=== PATIENT | female | born 1965 | race Caucasian/White ===

== ENCOUNTER → 2016-06-07 | Outpatient (CLI) | payer OTHER ==
--- NOTE | 2016-06-07 19:56 | CONS ---
DATE OF CONSULTATION: REASON FOR CONSULTATION: Chronic fatigue in addition to multiple other complaints that are somewhat nonspecific thought to be related to sleep disorder. HISTORY OF PRESENT ILLNESS: This is a 50-year-old female patient who claims to be in a good state of health. Over the past 4 to 5 months at least there has significant change in her condition. She is complaining of multiple symptoms that are somewhat one way or the other not related to each other. She is having nonspecific chest wall pains for which she has undergone cardiac work-up with Dr. Hernandez and her echocardiogram ( ) noted to be negative. She has noted some elevation in her blood pressure. She has also noted around 30 pounds weight gain over the past 6 months. She has been complaining of increased fatigue and sleepiness. She is having some sleep disturbance as the patient is going to bed around 1:00 a.m. waking up at 5:00 a.m. and she is unable to sleep more than 3 to 5 hours and she wakes up constantly. She is feeling flushed, anxious and hot flashes. She also seems to be quite restless. She claims to have had the blood work through her primary care physician's and apparently there have been no significant abnormalities. She is having irregular menses and probably she is at a premenopausal stage at this point. She has been diagnosed having hypothyroidism in the past and at one point she was on 125 mcg of Synthroid and currently she is off the treatment and she took herself off the treatment without consulting her physician. She has been diagnosed having hypertension, hyperlipidemia recently and she was started on combination of Pravachol and Lopressor. She also has history of polycystic ovary syndrome. No history of depression. No history of anxiety. She works 2 jobs. 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 PAST MEDICAL HISTORY: Hypertension, hyperlipidemia, polycystic ovary syndrome, and hypothyroidism. Past surgical history is right foot surgery. DRUG ALLERGIES: Not known. Outpatient medication includes: 1. Pravachol. 2. Lopressor. SOCIAL HISTORY: Nonsmoker, no history of alcohol. No history of IV drugs. FAMILY HISTORY: Negative for sleep breathing disorder. REVIEW OF SYSTEMS: Twelve-point review of systems was done. Positive findings mentioned above in the history of present illness. BP is 132/94, pulse 74, respirations 16, temperature 97.9, sats are 96% on room air. Weight is 215, height is 5 feet 8 inches, neck size 14-1/2 inches. GENERAL APPEARANCE: Calm, comfortable. HEENT: Negative for JVD goiter, neck masses. Mallampati Class 1. LUNGS: Clear to auscultation. HEART: Heart sounds are regular rate and rhythm. Normal S1, S2. ABDOMEN: Soft, nontender. No organomegaly. EXTREMITIES: No edema. No cyanosis or clubbing. IMPRESSION: 1. Sleep disturbance, nonspecific. Rule out a new onset insomnia, which is secondary to various other symptoms that the patient is having. Very likely the patient is going through menopause and some of the manifestations can be attributed to that. However, other metabolic disorders and endocrinological disorders such as hypothyroidism and connective tissue disease disorders need to be ruled out especially that she is having chronic body aches in addition. She needs to be worked up further in that regard. Sleep apnea is felt to be much less likely at this point. 2. Chronic fatigue. 3. Recent weight loss. Current BMI is 32. 4. Hypertension. 5. Hyperlipidemia. 6. Hypothyroidism, history of. 7. Polycystic ovary syndrome. PLAN: 1. Review the blood work. 2. Make sure there is no hypothyroidism. 3. Make sure there is no iron deficiency. 4. Serologic markers for connective tissue disease. 5. Complete the cardiac work-up. 6. Home sleep study to assess for any sleep breathing disorder and deal accordingly.
== END | disposition home or self-care (01) ==
LOC: SLEEP 15:49
PROVIDERS: ATTEND Internal Medicine Critical Care Medicine
DX: R53.82 Chronic fatigue, unspecified (principal); G47.9 Sleep disorder, unspecified; I10 Essential (primary) hypertension; E78.5 Hyperlipidemia, unspecified; E03.9 Hypothyroidism, unspecified; E28.2 Polycystic ovarian syndrome; Z79.899 Other long term (current) drug therapy
CPT/HCPCS: 99211

== ENCOUNTER → 2017-04-25 | Outpatient (CLI) | payer OTHER ==
[2017-04-25 10:49] LABS: ALT 48 U/L (9-52); AST 34 U/L (14-36); Alkaline Phosphatase 89 U/L (38-126); Anion Gap 10 mmol/L; Blood Urea Nitrogen 15 mg/dL (7-17); Carbon Dioxide 29 mmol/L (22-30); Chloride 103 mmol/L (98-107); Cholesterol 244 mg/dL (<200); Glucose 102 mg/dL (74-99); HDL Cholesterol 58 mg/dL (40-60); Non-African American GFR(MDRD) >60 (>60 ml/min/1.73 sqM); Potassium 4.5 mmol/L (3.5-5.1); Sodium 142 mmol/L (137-145); Total Bilirubin 0.6 mg/dL (0.2-1.3); Total Protein 7.9 g/dL (6.3-8.2)
== END | disposition home or self-care (01) ==
LOC: LABWHC1 09:37
PROVIDERS: ATTEND Internal Medicine Interventional Cardiology
DX: E78.2 Mixed hyperlipidemia (principal)
CPT/HCPCS: 36415; 80053; 80061

== ENCOUNTER → 2017-05-03 | Outpatient (CLI) | payer OTHER ==
--- NOTE | 2017-05-03 09:02 | MM ---
Reason for exam: additional evaluation requested from abnormal screening. Last mammogram was performed less than 1 month ago. History: Family history of breast cancer in paternal grandmother. Took hormonal contraceptives for 5 years beginning at age 18. Physical Findings: Nurse Summary: 2cm nodule in the left breast at 1 o'clock (nurse ebony). MG 3D Work Up W/Cad LT Spot compression CC, spot compression MLO, and LM view(s) were taken of the left breast. Prior study comparison: April 25, 2017, bilateral MG screening mammo w CAD. August 26, 2008, bilateral diagnostic digital mammog. Finding: There is a 22 mm circumscribed oval mass in the upper outer quadrant of the left breast, lesion persists. These results were verbally communicated with the patient and result sheet given to the patient on 05/03/17. ASSESSMENT: Incomplete: need additional imaging evaluation, BI-RAD 0 RECOMMENDATION: Ultrasound of the left breast.
--- NOTE | 2017-05-03 09:04 | USB ---
Reason for exam: additional evaluation requested from abnormal screening. History: Family history of breast cancer in paternal grandmother. Took hormonal contraceptives for 5 years beginning at age 18. US Breast Workup Limited LT Left breast ultrasound demonstrates a 0.9 x 0.7 x 0.5cm oval, cystic lesion at 12 o'clock, a 2.3 x 1.7 x 1.2cm oval, cystic lesion at 1 o'clock and a 0.7 x 0.8 x 0.5cm oval, cystic lesion at 2 o'clock. Fibrocystic change. These results were verbally communicated with the patient and result sheet given to the patient on 05/03/17. ASSESSMENT: Benign, BI-RAD 2 RECOMMENDATION: Return to routine screening mammogram schedule for both breasts.
== END | disposition home or self-care (01) ==
LOC: RADMAMWWP 07:32
PROVIDERS: ATTEND Obstetrics & Gynecology
DX: R92.8 Other abnormal and inconclusive findings on diagnostic imaging of breast (principal)
CPT/HCPCS: 77065; 76642; G0279

== ENCOUNTER 2018-02-21 08:27 | Day surgery (SDC) | payer OTHER ==
[2018-02-19 15:35] VITALS: BMI 28.4
[~2018-02-21 08:27] MED LIST: LACTATED RINGERS 1,000 ML IV SCH; LIDOCAINE 1% 20 ML VIAL (10MG/ML) FOR IV START INTRADERMA PRN
[2018-02-21 08:50] VITALS: RESP 16; TEMP 98
[2018-02-21] MEDS ORDERED: PROPOFOL 10 MG/ML 20 ML VIAL IV ONE (09:42)
[2018-02-21] MEDS ORDERED: GLYCOPYRROLATE 0.2 MG/ML 2 ML VIAL ONE (09:42)
[2018-02-21] MEDS ORDERED: LIDOCAINE 1% INJ 10MG/ML (20 ML MDV) ONE (09:42)
[2018-02-21] MEDS ORDERED: MIDAZOLAM 2 MG/2 ML VIAL ONE (09:42)
--- NOTE | 2018-02-21 10:04 | P.PCN ---
Date of Procedure: 02/21/18 Procedure(s) Performed: Brief history: Patient is a pleasant 52-year-old white female, scheduled for an elective upper endoscopy as well as colonoscopy as a part of evaluation of epigastric pain, postprandial abdominal bloating and change in bowel habits. Procedure performed: Esophagogastroduodenoscopy with biopsy Colonoscopy Preoperative diagnosis: Chronic epigastric pain Change in bowel habits Anesthesia: MAC Procedure: After informed consent was obtained from the patient was brought into the endoscopy unit and IV sedation was administered by anesthesia under continuous monitoring. Initially upper endoscopy was done. The Olympus GF 160 video endoscope was inserted inserted into the mouth and esophagus intubated without any difficulty and was gradually advanced into the stomach and duodenum and carefully examined. The bulb and second part of the duodenum appeared normal. Biopsies were done from the duodenum to rule out celiac disease. The scope was then withdrawn into the stomach adequately insufflated with air and upon careful examination the antrum had mild diffuse gastritis and biopsies were done from this area. The body, cardia and fundus appeared normal. the multiple small gastric polyps in the body of the stomach and biopsies were also done from this area. The scope was then withdrawn into the esophagus. The GE junction was located at 40 cm to the incisors. It appeared regular with no erythema erosions or ulcerations. Rest of the esophagus appeared normal. Patient tolerated the procedure well. At this time the patient continued to remain sedation. Initial digital rectal examination was normal. Olympus CF 160 video colonoscope was then inserted into the rectum and gradually advanced to the cecum without any difficulty. Careful examination was performed as the scope was gradually being withdrawn. The prep was excellent. The cecum, ascending colon, transverse colon, descending colon, sigmoid colon and rectum appeared normal. Retroflexion was performed in the rectum and no lesions were noted. Patient tolerated the procedure well. Impression: 1. Upper endoscopy revealed mild antral gastritis, small gastric polyps 2. Colonoscopy was essentially within normal limits with no evidence of colitis or colorectal neoplasia. Recommendations: Findings of this examination were discussed with the patient as well as her family. She was advised to follow with the biopsy results. She was advised to have a repeat screening colonoscopy in 10 years.
[2018-02-21 10:31] VITALS: BP 141/87; PULSE 87
== END 2018-02-21 11:24 | disposition home or self-care (01) ==
LOC: ORWHC2ENDO 08:27
PROVIDERS: ATTEND Internal Medicine Gastroenterology
DX: K29.50 Unspecified chronic gastritis without bleeding (principal); K31.7 Polyp of stomach and duodenum; R19.4 Change in bowel habit; I10 Essential (primary) hypertension; E78.5 Hyperlipidemia, unspecified; G43.909 Migraine, unspecified, not intractable, without status migrainosus; Z79.1 Long term (current) use of non-steroidal anti-inflammatories (NSAID); Z79.899 Other long term (current) drug therapy
CPT/HCPCS: 88305; 45378; 43239; J2250; J2001; J2704

== ENCOUNTER → 2018-02-28 | Outpatient (CLI) | payer OTHER ==
[2018-02-28 08:14] VITALS: BP 133/90; PULSE 65; TEMP 98.2; BMI 29.9
--- NOTE | 2018-02-28 09:11 | P.PN ---
Progress Note - Text Progress Note Date: 02/28/18 Chief Complaint: abdominal and pelvic pains for one year. HPI: This is a 52-year-old within LMP of 10/01/2016. The patient states she has been having different types of abdominal and pelvic pains for one year. She has had abdominal tenderness and bloating during that year as well. The pain can be in the upper abdomen, lower abdomen, or pelvis. The lower abdominal pain tends to be greater on the left side in this is the side she has had more problems with ovarian cysts in the past. The discomfort often is a crampy type pain but also can be sharp in nature. At times it can be severe and she rates it at a 9 out of 10 at those times. Currently she rates it at a 4 out of 10 and it feels more like a throbbing type discomfort. Currently, there seems to be discomfort in the epigastric and lower abdomen just right of the midline. She has also noticed dyspareunia and pelvic discomfort after intercourse. She recently had a colonoscopy and upper endoscopy with minor findings that did not explain her abdominal pains, according to the patient. She had also been treated for a kidney infection in November 2017 and also was on antibiotics for bronchitis soon after that. She states she was on 3 different antibiotics over a two-month period during the summer. She has regular daily bowel movements and denies emesis. She states her appetite has been variable. Her weight has fluctuated by plus or -15 pounds. She also feels very bloated and states she often does not recognize her abdomen when she looks down because it appears so bloated. Her is status post vasectomy. Her is her only sexual partner. ROS: She has lost about 19 pounds sensor 04/25/2017 appointment. She denies respiratory or cardiac problems. G.I.: occasional nausea without emesis. Bowel movements are regular and normal. Her appetite is variable. : she denies any urinary symptoms at this time. PE: Blood pressure: 133/90, Height: 5'8", Weight: 197 pounds, Temperature: 98.2 , Pulse: 65. This is a well developed, well nourished, white female who is alert and orientedx3, in no acute distress. Neck: supple without massive thyromegaly. Chest and lungs: clear to auscultation. Heart: regular rate and rhythm. Abdomen: the abdomen does not appear distended. There are minimal bowel sounds noted. There is slight firmness in the epigastric region and this is minimally tender. The rest of the abdomen is soft with minimal lower abdominal tenderness to the right of the midline. There is no rebound tenderness. Besides the firmness in the epigastric region, there are no palpable masses. Pelvic exam: normal external genitalia. Cervix and vagina appear normal. There is no unusual vaginal discharge. There is no cervical motion tenderness. The uteruses midposition, gravid size, and nontender. There are no palpable adnexal masses or tenderness. Impression: 1. 52 year old postmenopausal female with one year history of variable abdominal and pelvic pains. 2. Epigastric firmness and mild epigastric tenderness as well as mild lower abdominal tenderness to the right of the midline. 3. Differential diagnosis will include ovarian neoplasm, non-gynecologic abdominal mass, and G.I. dysfunction. Plan: 1. Pelvic ultrasound will be done today. 2. Consider CT scan of the abdomen and pelvis after pelvic ultrasound is completed. Time spent with the patient: 30 minutes
--- NOTE | 2018-02-28 14:19 | US ---
EXAMINATION TYPE: US pelvic complete DATE OF EXAM: 02/28/2018 COMPARISON: NONE CLINICAL HISTORY: R14.0 ABD BLOATING and pelvic bloating x 1 year TECHNIQUE: Transvaginal (TV) and Transabdominal (TA) . Transabdominal sonographic images of the pel vis were acquired. Transvaginal sonographic images were medically necessary to better assess the fol lowing anatomy: endometrium and ovaries Date of LMP: 2017 EXAM MEASUREMENTS: Uterus: 10.0 x 5.7 x 4.0 cm Endometrial Stripe: 2.7mm Right Ovary: 2.4 x 1.7 x 1.8 cm Left Ovary: 3.1 x 1.6 x 1.6 cm 1. Uterus: Anteverted; multiple Nabothian Cysts in cervix with largest = 0.8 x 0.7 x 0.6cm 2. Endometrium: thickness is wnl for 1 year post menopause 3. Right Ovary: small follicles 4. Left Ovary: simple follicular cyst = 1.4 x 1.2 x 1.0cm Color flow is seen in bilateral ovary 5. Bilateral Adnexa: wnl 6. Posterior cul-de-sac: wnl IMPRESSION: 1. Multiple cervical nabothian cysts. 2. Multiple small follicles noted bilaterally. No evidence for torsion.
--- NOTE | 2018-02-28 14:39 | P.PN ---
Progress Note - Text Progress Note Date: 02/28/18 OUTPATIENT FOLLOW-UP NOTE TEST(S)/RESULTS: pelvic ultrasound done on 02/28/2018 shows small follicular cysts and small nabothian cysts. METHOD OF NOTIFICATION: the patient was notified by phone. PATIENT COMMENTS: the patient would like to proceed to CT scan of the abdomen and pelvis. DIAGNOSIS: benign pelvic ultrasound with no discrete explanation for her abdominal and pelvic symptoms. DISCUSSION: the patient will be scheduled for a CT scan of the abdomen and pelvis with contrast. She would prefer to have this done on a Monday if possible. PLAN: CT scan of the abdomen and pelvis.
== END | disposition home or self-care (01) ==
LOC: WWCWWP 07:54
PROVIDERS: ATTEND Obstetrics & Gynecology
DX: R10.816 Epigastric abdominal tenderness (principal); R10.813 Right lower quadrant abdominal tenderness; Z78.0 Asymptomatic menopausal state
CPT/HCPCS: 76830; 76856

== ENCOUNTER → 2018-03-09 | Outpatient (CLI) | payer OTHER ==
--- NOTE | 2018-03-09 16:24 | CT ---
EXAMINATION TYPE: CT abdomen pelvis w con DATE OF EXAM: 03/09/2018 COMPARISON: HISTORY: abdominal pain, bloating, distention X [address] DLP: 1098.7 mGycm CONTRAST: CT scan of the abdomen and pelvis is performed with Oral Contrast and with IV Contrast, patient injec grace with 100 mL of Isovue 300. FINDINGS: LUNG BASES-: No visible nodule. No infiltrate. LIVER/GB: Small gallstones identified. No space occupying hepatic lesion. Biliary tree is of jayden l caliber. PANCREAS: No inflammation. No distinct mass. SPLEEN: No splenic enlargement. No lesion seen. ADRENALS: No nodule. No thickening. KIDNEYS/BLADDER: No hydronephrosis. No nephrolithiasis. No distinct renal mass. Mild urinary bladd er distention. BOWEL: Normal appendix. Normal bowel caliber. No inflammation. GENITAL ORGANS: No gross abnormality. LYMPH NODES: No greater than 1cm abdominal or pelvic lymph nodes are appreciated. AORTA: No significant abnormality. OSSEOUS STRUCTURES: No significant abnormality is seen. OTHER: No significant additional abnormality is seen. IMPRESSION: 1. Small gallstones seen without evidence for wall thickening. 2. Mild urinary bladder distention. Otherwise unremarkable study.
--- NOTE | 2018-03-13 16:52 | P.PN ---
Progress Note - Text Progress Note Date: 03/13/18 OUTPATIENT FOLLOW-UP NOTE TEST(S)/RESULTS: CT scan of the abdomen and pelvis done on 03/07/2018 showed some small gallstones with no evidence of wall thickening. Also mildly distended urinary bladder. The study was otherwise unremarkable. METHOD OF NOTIFICATION: the patient was notified by phone. PATIENT COMMENTS: the patient understands the results. DIAGNOSIS: intermittent chronic abdominal pain without significant findings on CT scan or pelvic ultrasound. DISCUSSION: the findings of small gallstones and distended bladder did not seem to explain symptoms. I believe most likely persons and still can be GI related even though she had a negative colonoscopy and upper endoscopy. PLAN: she will follow up with her primary care physician if she continues to have abdominal issues. She will return to see me in one year for her annual exam.
== END | disposition home or self-care (01) ==
LOC: RADCTMAIN 14:06
PROVIDERS: ATTEND Obstetrics & Gynecology
DX: K80.20 Calculus of gallbladder without cholecystitis without obstruction (principal); N32.89 Other specified disorders of bladder; R14.0 Abdominal distension (gaseous)
CPT/HCPCS: 74177; Q9967

== ENCOUNTER → 2022-12-06 | Outpatient (CLI) | payer OTHER ==
[2022-12-06 20:28] LABS: ALT 16 U/L (8-44); AST 21 U/L (13-35); Albumin 4.6 d/dL (3.8-4.9); Alkaline Phosphatase 76 U/L (41-126); BUN/Creat Ratio 13.71 Ratio (12.00-20.00); Blood Urea Nitrogen 9.6 mg/dL (9.0-27.0); Calcium 9.5 mg/dL (8.7-10.3); Carbon Dioxide 27.6 mmol/L (21.6-31.8); Chloride 97 mmol/L (96-109); Globulin 2.3 d/dL (1.6-3.3); Glucose 95 mg/dL (70-110); Potassium 4.1 mmol/L (3.5-5.5); Sodium 138 mmol/L (135-145); Total Bilirubin 0.6 mg/dL (0.3-1.2); Total Protein 6.9 d/dL (6.2-8.2)
== END | disposition home or self-care (01) ==
LOC: LABWHC1 15:08
PROVIDERS: ATTEND Internal Medicine Interventional Cardiology
DX: I10 Essential (primary) hypertension (principal); E78.2 Mixed hyperlipidemia
CPT/HCPCS: 36415; 80053; 80061

== ENCOUNTER 2023-02-23 10:08 | Observation (INO) | payer OTHER ==
[2023-02-23] MEDS ORDERED: ONDANSETRON 4 MG/2 ML VIAL IVP STA (10:44)
[2023-02-23] MEDS ORDERED: SODIUM CHLORIDE 0.9% 1,000 ML IV ONE (10:44)
--- NOTE | 2023-02-23 10:45 | ED ---
General Adult HPI - General Chief complaint: Head Injury Stated complaint: Fall Time Seen by Provider: 02/23/23 10:15 Source: patient Mode of arrival: ambulatory Limitations: no limitations - History of Present Illness Initial comments: The patient's a 57 female is otherwise healthy presents emergency room accompanied by her for dizziness nausea and vomiting. The patient states that she became dizzy last night around 10 PM and twisted her right knee. This caused her to fall into a wall hitting the left parietal scalp onto the wall. She denies any loss consciousness but had dizziness and disorientation afterwards. She continued to feel dizzy with nausea and occasional vomiting since then. Patient states she feels as though the room is spinning. She has pain to the right knee, right hip, right humerus and right ribs. She denies a cough, congestion, fever, chest pain, shortness breath, paralysis of the extremities, slurred speech, facial droop or other neurological symptoms. - Related Data Home Medications Medication Instructions Recorded Confirmed Atorvastatin Calcium [Lipitor] 20 mg PO DAILY@189902/19/18 02/23/23 Losartan-Hctz 50-12.5 mg [Hyzaar 1 tab PO DAILY@1900 02/23/23 02/23/23 50-12.5] Allergies Allergy/AdvReac Type Severity Reaction Status Date / Time No Known Allergies Allergy Verified 02/23/23 15:48 Review of Systems ROS Statement: Those systems with pertinent positive or pertinent negative responses have been documented in the HPI. ROS Other: All systems not noted in ROS Statement are negative. Past Medical History Past Medical History: Hypertension Additional Past Medical History / Comment(s): high cholesterol,polycystic ovaries History of Any Multi-Drug Resistant Organisms: None Reported Past Surgical History: Orthopedic Surgery Additional Past Surgical History / Comment(s): R foot Smoking Status: Never smoker Past Alcohol Use History: Occasional General Exam Limitations: no limitations General appearance: alert Head exam: Present: other (Superficial abrasion over the left parietal scalp without any significant swelling. No hemotympanum bilaterally. Pupils are e qual and reactive bilaterally. Negative for any Sultana sign or raccoon eyes.) Eye exam: Present: normal appearance, nystagmus (Bilateral horizontal nystagmus), other ENT exam: Present: normal exam, other (Bilateral eustachian tube dysfunction without any erythema or perforation) Neck exam: Present: normal inspection, full ROM, other (No nuchal rigidity) Respiratory exam: Present: normal lung sounds bilaterally Cardiovascular Exam: Present: regular rate, normal rhythm GI/Abdominal exam: Present: soft Extremities exam: Present: tenderness (Pain with palpation over the right hip no deformity ecchymosis, no deformity of the right leg.), other (Pain over the lateral right knee without any significant swelling discoloration or deformity. Limited range of motion due to pain. Patient has [place] palpation over the mid right humerus. There is no deformity ecchymosis or swelling in this area.) Back exam: Present: full ROM Neurological exam: Present: alert, oriented X3, CN II-XII intact, other (No focal deficits NIH of 0, no negative pronator drift, negative [id number], no facial droop no slurred speech) Psychiatric exam: Present: normal affect, normal mood Skin exam: Present: warm, dry Course Vital Signs 02/23/23 02/23/23 02/23/23 10:11 12:03 13:20 Temperature 97 F L 98.1 F Pulse Rate 99 85 Pulse Rate [ 81 Sitting] Pulse Rate [ 81 Standing] Pulse Rate [ 79 Supine] Respiratory 18 16 Rate Blood Pressure 124/79 151/88 Blood Pressure 151/88 [Sitting] Blood Pressure 150/87 [Standing] Blood Pressure 149/89 [Supine] O2 Sat by Pulse 100 100 Oximetry - Reevaluation(s) Reevaluation #1: 02/23/23 8070 Patient is neurologically intact. Initially gave Valium which did not help with the dizziness did improve the nausea. She was also given Zofran. I attempted meclizine however patient had no improvement either. She is still significantly dizzy and feels as though the room is spinning. She will be admitted for further neurological evaluation at this time. EKG Findings - EKG Comments: EKG Findings:: EKG shows sinus rhythm at a rate of 83 bpm right bundle branch block, no acute ST segment elevation Medical Decision Making - Medical Decision Making Was pt. sent in by a medical professional or institution (, PA, FOREIGN BANKNOTE TELLER, urgent care, hospital, or alf...) When possible be specific @ -[No] Did you speak to anyone other than the patient for history (EMS, parent, family, police, friend...)? What history was obtained from this source @ -Has been at bedside Did you review nursing and triage notes (agree or disagree)? Why? @ -[I reviewed and agree with nursing and triage notes] Were old charts reviewed (outside hosp., previous admission, EMS record, old EKG, old radiological studies, urgent care reports/EKG's, alf records)? Report findings @ -[No old charts were reviewed] Differential Diagnosis (chest pain, altered mental status, abdominal pain women, abdominal pain men, vaginal bleeding, weakness, fever, dyspnea, syncope, hea dache, dizziness, GI bleed, back pain, seizure, CVA, palpatations, mental health, musculoskeletal)? @ -Concussion, TBI, vertigo, dizziness, contusion of the right humerus, contusi on of the right hip, right right rib contusion, right knee sprain EKG interpreted by me (3pts min.). @ -EKG shows sinus rhythm at a rate of 83 bpm, right bundle-branch block, no acute ST segment elevation X-rays interpreted by me (1pt min.). @ -X-rays are negative for any fractures or acute changes. No deformities seen. CT interpreted by me (1pt min.). @ -CT is negative for any mass hemorrhage or other acute changes. U/S interpreted by me (1pt. min.). @ -[None done] What testing was considered but not performed or refused? (CT, X-rays, U/S, labs)? Why? @ -[None] What meds were considered but not given or refused? Why? @ -[None] Did you discuss the management of the patient with other professionals (professionals i.e. , PA, FOREIGN BANKNOTE TELLER, lab, RT, psych nurse, home health care social worker, collar packer, teacher, evp chief exploration officer, insurance case manager)? Give summary @ -I discussed patient's symptoms are And disposition with attending ED physician Dr. Allison today. Was smoking cessation discussed for >3mins.? @ -[No] Was critical care preformed (if so, how long)? @ -[No] Were there social determinants of health that impacted care today? How? (Homelessness, low income, unemployed, alcoholism, drug addiction, transportation, low edu. Level, literacy, decrease access to med. care, custodial, rehab)? @ -[No] Was there de-escalation of care discussed even if they declined (Discuss DNR or withdrawal of care, Hospice)? DNR status @ -[No] What co-morbidities impacted this encounter? (DM, HTN, Smoking, COPD, CAD, Cancer, CVA, ARF, Chemo, Hep., AIDS, mental health diagnosis, sleep apnea, morbid obesity)? @ -[None] Was patient admitted / discharged? Hospital course, mention meds given and route, prescriptions, significant lab abnormalities, going to OR and other pertinent info. @ -Patient continues to have severe dizziness and vertigo after meclizine and Valium. She will be admitted to the hospital for further management and neuro evaluation. Undiagnosed new problem with uncertain prognosis? @ -[No] Drug Therapy requiring intensive monitoring for toxicity (Heparin, Nitro, Insulin, Cardizem)? @ -[No] Were any procedures done? @ -[No] Diagnosis/symptom? @ -Dizziness, vertigo, headache injury without loss consciousness, suspected concussion, right hip contusion, right rib contusion, right humerus contusion, sprain of the right knee Acute, or Chronic, or Acute on Chronic? @ -Acute Uncomplicated (without systemic symptoms) or Complicated (systemic symptoms)? @ -[default] Side effects of treatment? @ -[No] Exacerbation, Progression, or Severe Exacerbation? @ -[No] Poses a threat to life or bodily function? How? (Chest pain, [place], [place], pneumonia, PE, COPD, DKA, ARF, appy, cholecystitis, CVA, Diverticulitis, Homicidal, Suicidal, threat to staff... and all critical care pts) @ -[No] - Lab Data Result diagrams: 02/23/23 10:49 02/23/23 10:49 Lab Results 02/23/23 02/23/23 02/23/23 Range/Units 10:49 10:49 10:49 WBC 11.1 H (3.8-10.6) k/uL RBC 4.25 (3.80-5.40) m/uL Hgb 12.6 (11.4-16.0) gm/dL Hct 37.5 (34.0-46.0) % MCV 88.1 (80.0-100.0) fL MCH 29.6 (25.0-35.0) pg MCHC 33.6 (31.0-37.0) g/dL RDW 14.6 (11.5-15.5) % Plt Count 279 (150-450) k/uL MPV 8.9 Neutrophils % 86 % Lymphocytes % 9 % Monocytes % 4 % Eosinophils % 0 % Basophils % 0 % Neutrophils # 9.6 H (1.3-7.7) k/uL Lymphocytes # 1.0 (1.0-4.8) k/uL Monocytes # 0.4 (0-1.0) k/uL Eosinophils # 0.0 (0-0.7) k/uL Basophils # 0.0 (0-0.2) k/uL Sodium 140 (137-145) mmol/L Potassium 3.4 L (3.5-5.1) mmol/L Chloride 105 (98-107) mmol/L Carbon Dioxide 22 (22-30) mmol/L Anion Gap 13 mmol/L BUN 10 (7-17) mg/dL Creatinine 0.44 L (0.52-1.04) mg/dL Est GFR (CKD-EPI)AfAm >90 (>60 ml/min/1.73 sqM) Est GFR (CKD-EPI)NonAf >90 (>60 ml/min/1.73 sqM) Glucose 132 H (74-99) mg/dL Calcium 9.6 (8.4-10.2) mg/dL Total Bilirubin 0.8 (0.2-1.3) mg/dL AST 28 (14-36) U/L ALT 21 (4-34) U/L Alkaline Phosphatase 84 (38-126) U/L Troponin I (0.000-0.034) ng/mL Total Protein 7.5 (6.3-8.2) g/dL Albumin 4.3 (3.5-5.0) g/dL Urine Color Yellow Urine Appearance Clear (Clear) Urine pH 8.0 (5.0-8.0) Ur Specific [place] 1.015 (1.001-1.035) Urine Protein Trace (Negative) Urine Glucose (UA) Negative (Negative) Urine Ketones Trace (Negative) Urine Blood Negative (Negative) Urine Nitrite Negative (Negative) Urine Bilirubin Negative (Negative) Urine Urobilinogen <2.0 (<2.0) mg/dL Ur Leukocyte Esterase Negative (Negative) 02/23/23 Range/Units 10:49 WBC (3.8-10.6) k/uL RBC (3.80-5.40) m/uL Hgb (11.4-16.0) gm/dL Hct (34.0-46.0) % MCV (80.0-100.0) fL MCH (25.0-35.0) pg MCHC (31.0-37.0) g/dL RDW (11.5-15.5) % Plt Count (150-450) k/uL MPV Neutrophils % % Lymphocytes % % Monocytes % % Eosinophils % % Basophils % % Neutrophils # (1.3-7.7) k/uL Lymphocytes # (1.0-4.8) k/uL Monocytes # (0-1.0) k/uL Eosinophils # (0-0.7) k/uL Basophils # (0-0.2) k/uL Sodium (137-145) mmol/L Potassium (3.5-5.1) mmol/L Chloride (98-107) mmol/L Carbon Dioxide (22-30) mmol/L Anion Gap mmol/L BUN (7-17) mg/dL Creatinine (0.52-1.04) mg/dL Est GFR (CKD-EPI)AfAm (>60 ml/min/1.73 sqM) Est GFR (CKD-EPI)NonAf (>60 ml/min/1.73 sqM) Glucose (74-99) mg/dL Calcium (8.4-10.2) mg/dL Total Bilirubin (0.2-1.3) mg/dL AST (14-36) U/L ALT (4-34) U/L Alkaline Phosphatase (38-126) U/L Troponin I <0.012 (0.000-0.034) ng/mL Total Protein (6.3-8.2) g/dL Albumin (3.5-5.0) g/dL Urine Color Urine Appearance (Clear) Urine pH (5.0-8.0) Ur Specific [place] (1.001-1.035) Urine Protein (Negative) Urine Glucose (UA) (Negative) Urine Ketones (Negative) Urine Blood (Negative) Urine Nitrite (Negative) Urine Bilirubin (Negative) Urine Urobilinogen (<2.0) mg/dL Ur Leukocyte Esterase (Negative) Disposition Clinical Impression: Closed head injury, Vertigo, Sprain of right knee Disposition: ADMITTED IP TO THIS HOSP Condition: Fair Referrals: Scarlet Middleton MD [Primary Care Provider] - 1-2 days Decision to Admit Reason: Admit from EC Decision Time: 16:02
--- NOTE | 2023-02-23 11:25 | CT ---
EXAMINATION TYPE: CT brain cspine wo con CT DLP: 1403.7 mGycm, Automated exposure control for dose reduction was used. DATE OF EXAM: 02/23/2023 11:18 AM COMPARISON: None.. CLINICAL INDICATION:Female, 57 years old with history of pain; Fall, pain TECHNIQUE: Brain: Multiple axial CT images of the brain were obtained without IV contrast. Cspine: Axial CT images from the skull base to the inferior aspect of T2 we obtained without intraven ous contrast. Coronal and sagittal reformatted images were also reviewed. FINDINGS: Brain: Extra-axial spaces: No abnormal extra-axial fluid collections. Ventricular system: Within normal limits Cerebral parenchyma: No acute intraparenchymal hemorrhage or mass effect. The fletcher-white junction is well differentiated. Cerebellum: Unremarkable. Mass effect: No evidence of midline shift. Intracranial vasculature: unremarkable Soft tissues: Normal. Calvarium/osseous structures: No depressed skull fracture. Paranasal sinuses and mastoid air cells: Clear. Visualized orbits: Orbital contents are intact. Cervical spine: Fracture: None. Osseous structures: Multilevel disc space narrowing with anterior osteophytosis. Multilevel facet art hropathy. Vertebral alignment: Within normal limits. Spinal canal/Neural Foramina: No evidence of significant spinal canal narrowing. Facet joint uncovert ebral joint arthropathy scattered throughout the cervical spine with varying degrees of neural forami nal stenosis. Neck soft tissues: Prevertebral soft tissues are within normal limits. Other: The airway is patent. The lung apices are clear. IMPRESSION: 1. No acute intracranial process. 2. No evidence of cervical spine fracture. 3. Mild multilevel degenerative disc disease and facet arthropathy.
[2023-02-23 11:41] LABS: ALT 21 U/L (4-34); AST 28 U/L (14-36); African American GFR (CKD) >90 (>60 ml/min/1.73 sqM); Albumin 4.3 g/dL (3.5-5.0); Alkaline Phosphatase 84 U/L (38-126); Anion Gap 13 mmol/L; Blood Urea Nitrogen 10 mg/dL (7-17); Calcium 9.6 mg/dL (8.4-10.2); Carbon Dioxide 22 mmol/L (22-30); Chloride 105 mmol/L (98-107); Glucose 132 mg/dL (74-99); Non-African American GFR(CKD) >90 (>60 ml/min/1.73 sqM); Potassium 3.4 mmol/L (3.5-5.1); Sodium 140 mmol/L (137-145); Total Bilirubin 0.8 mg/dL (0.2-1.3); Total Protein 7.5 g/dL (6.3-8.2)
[2023-02-23 11:43] LABS: Basophils % (A) 0 %; Eosinophils % (A) 0 %; HCT 37.5 % (34.0-46.0); HGB 12.6 gm/dL (11.4-16.0); Lymphocytes % (A) 9 %; MCH 29.6 pg (25.0-35.0); MCHC 33.6 g/dL (31.0-37.0); MCV 88.1 fL (80.0-100.0); Mean Platelet Volume 8.9; Monocytes # (A) 0.4 k/uL (0-1.0); Monocytes % (A) 4 %; Neutrophils # (A) 9.6 k/uL (1.3-7.7); Neutrophils % (A) 86 %; Platelet Count 279 k/uL (150-450); RBC 4.25 m/uL (3.80-5.40); RDW 14.6 % (11.5-15.5); WBC 11.1 k/uL (3.8-10.6)
--- NOTE | 2023-02-23 12:04 | XR ---
EXAMINATION TYPE: XR Hip Complete RT DATE OF EXAM: 02/23/2023 11:57 AM CLINICAL INDICATION:Female, 57 years old with history of pain, fall; [facility] COMPARISON: None. TECHNIQUE: XR Hip Complete RT; hip was examined in the frontal and lateral projections and a AP pelvi s. FINDINGS: No evidence for acute process, joint dislocation or significant soft tissue swelling. Osteo phyte formation of the superior acetabulum of the hip. IMPRESSION: 1. No evidence for acute process. 2. Mild hip osteoarthrosis.
--- NOTE | 2023-02-23 12:05 | XR ---
EXAMINATION TYPE: XR humerus RT DATE OF EXAM: 02/23/2023 11:57 AM CLINICAL INDICATION:Female, 57 years old with history of pain, fall; COMPARISON: None TECHNIQUE: The right humerus was examined in frontal and lateral projections. FINDINGS: No evidence of acute osseous pathology, joint dislocation, or soft tissue swelling. The rem aining portions of the visualized chest are unremarkable. Mild degeneration changes of the acromiocla vicular joint. IMPRESSION: 1. No acute osseous pathology. 2. Mild right AC joint osteoarthrosis.
--- NOTE | 2023-02-23 12:06 | XR ---
EXAMINATION TYPE: XR ribs RT w pa chest xray DATE OF EXAM: 02/23/2023 11:57 AM CLINICAL INDICATION:Female, 57 years old with history of fall, pain; [facility] COMPARISON: None TECHNIQUE: XR ribs RT w pa chest xray; Frontal and oblique views of the ribs with frontal chest radio graph. FINDINGS: The ribs have a normal appearance. No evidence of fracture. Overall, the lungs are clear. The cardiac silhouette is normal in size. The remaining osseous structures are intact. IMPRESSION: No acute osseous pathology.
--- NOTE | 2023-02-23 12:06 | XR ---
EXAMINATION TYPE: XR knee complete RT DATE OF EXAM: 02/23/2023 11:57 AM CLINICAL INDICATION:Female, 57 years old with history of pain, fall; [facility] COMPARISON: None. TECHNIQUE: XR knee complete RT; examined in Frontal, lateral and oblique projections. FINDINGS: No evidence of any acute osseous pathology, soft tissue swelling. There may be a small reyna int effusion present. Tricompartmental osteophyte formation involving the femoral condyles, tibial plateau and patella. Mi ld joint space narrowing. Bipartite patella noted. IMPRESSION: 1. No acute osseous pathology. 2. Moderate tricompartmental osteoarthritic changes.
[2023-02-23] MEDS ORDERED: MECLIZINE 12.5 MG TAB PO STA (13:27)
[2023-02-23 15:03] LABS: Appearance,Urine Clear (Clear); Bilirubin,Urine Negative (Negative); Blood,Urine Negative (Negative); Color,Urine Yellow; Glucose,Urine (UA) Negative (Negative); Ketones,Urine Trace (Negative); Protein,Urine Trace (Negative); Specific Gravity,Urine 1.015 (1.001-1.035); Urobilinogen,Urine <2.0 mg/dL (<2.0)
[2023-02-23 15:04] LABS: Leukocyte Esterase,Urine Negative (Negative); Nitrite,Urine Negative (Negative)
[2023-02-23] MEDS ORDERED: ONDANSETRON 4 MG/2 ML VIAL IVP PRN (17:03)
[2023-02-23] MEDS ORDERED: NALOXONE 0.4 MG/ML 1 ML VIAL IV PRN (17:03)
[2023-02-23] MEDS ORDERED: LORazepam 2 MG/ML INJ IV PRN (17:04)
[2023-02-23] MEDS ORDERED: MECLIZINE 25 MG TAB PO PRN (17:04)
[2023-02-23] MEDS: SODIUM CHLORIDE 0.9% 1,000 ML IV SCH (17:28)
[2023-02-23] MEDS: ATORVASTATIN 20 MG TAB PO SCH (20:36)
[2023-02-23] MEDS: POTASSIUM CHLORIDE 10 MEQ in WATER FOR INJECTION 1 100ML.BAG IVPB SCH ×2 (20:37→22:57)
[2023-02-23] MEDS: LOSARTAN-HCTZ 50-12.5 MG 1 EACH TAB PO SCH (21:24)
[2023-02-24] MEDS ORDERED: ACETAMINOPHEN TAB 325 MG TAB PO PRN ×2 (08:31→12:25)
[2023-02-24] MEDS: FAMOTIDINE 20 MG/2 ML VIAL IV SCH ×2 (08:42→20:43)
[2023-02-24] MEDS: HEPARIN SODIUM,PORCINE 5,000 UNIT/ML 1 ML VIAL SQ SCH ×2 (08:42→20:44)
[2023-02-24 11:37] LABS: BUN/Creat Ratio 10.67 Ratio (12.00-20.00); Blood Urea Nitrogen 6.4 mg/dL (9.0-27.0); Calcium 8.5 mg/dL (8.7-10.3); Carbon Dioxide 34.5 mmol/L (21.6-31.8); Chloride 109 mmol/L (96-109); Glucose 97 mg/dL (70-110); Potassium 3.8 mmol/L (3.5-5.5); Sodium 145 mmol/L (135-145)
--- NOTE | 2023-02-24 12:07 | P.HPIM ---
History of Present Illness This is a pleasant 57 years old female with past medical history of hypertension patient states that her symptoms started Monday evening when she was trying to stand up quickly and she felt dizzy at the same time her foot gets stuck in the furniture and her right knee got twisted and an start seeing burst applied to the front of her eyesassociated with vomiting until 4:00 in the morning. Patient states that she cannot do weightbearing on her right knee because it hurts. Patient presents because she fell last night pt states she still feels dizziness which she describes it as nonspecific dizziness other than the room spinning or presyncope. relatedher dizziness got worse with or extreme head movement. She has some headache about 6-7/10 in the morning that's partially improved with Tylenol, She denies weakness numbness or tingling. No slurred speech. She still feels nausea, she tolerated this morning. She denies any diarrhea. No urinary complaints. No chest pain or dyspnea. no smoking, no illicit drugs. She drinks alcohol occasionally patient wants to go home soon for example after MRI which is pending now Vital signs stable and patient is afebrile Labs showed mild leukocytosis of 11.1, rest of CBC, BMP, liver enzymes not elevated. Urine analysis is negative for infection CT of the head and neck: No acute process X-ray of the right hip, right humerus, right knee: No acute process. Neck: No acute process EKG showing normal sinus rhythm at [address]-T changes Review of Systems Review of systems CONSTITUTIONAL: No fever, no malaise, no fatigue. HEENT: No recent visual problems or hearing problems. Denied any sore throat. CARDIOVASCULAR: No orthopnea, PND, no palpitations, no syncope. PULMONARY: No shortness of breath, no cough, no hemoptysis. GASTROINTESTINAL: No diarrhea, no nausea, no vomiting, no abdominal pain. Normoactive bowel sounds. NEUROLOGICAL: No headaches, no weakness, no numbness. HEMATOLOGICAL: Denies any bleeding or petechiae. GENITOURINARY: Denies any burning micturition, frequency, or urgency. MUSCULOSKELETAL/RHEUMATOLOGICAL: Denies any joint pain, swelling, or any muscle pain. ENDOCRINE: Denies any polyuria or polydipsia. Past Medical History Past Medical History: Hypertension Additional Past Medical History / Comment(s): high cholesterol,polycystic ovaries History of Any Multi-Drug Resistant Organisms: None Reported Past Surgical History: Orthopedic Surgery Additional Past Surgical History / Comment(s): R foot Past Anesthesia/Blood Transfusion Reactions: No Reported Reaction Past Psychological History: No Psychological Hx Reported Smoking Status: Never smoker Past Alcohol Use History: Occasional - Past Family History Father Family Medical History: COPD Additional Family Medical History / Comment(s): high platelet disorder- told hereditary Medications and Allergies Home Medications Medication Instructions Recorded Confirmed Type Atorvastatin Calcium [Lipitor] 20 mg PO DAILY@189902/19/18 02/23/23 History Losartan-Hctz 50-12.5 mg [Hyzaar 1 tab PO DAILY@189902/23/23 02/23/23 History 50-12.5] Allergies Allergy/AdvReac Type Severity Reaction Status Date / Time No Known Allergies Allergy Verified 02/23/23 15:48 Physical Exam Vitals: Vital Signs Temp Pulse Pulse Pulse Pulse Resp BP 02/24/23 06:54 97.8 F 77 18 02/24/23 01:35 98 F 97 02/23/23 22:51 98.1 F 73 17 02/23/23 21:57 76 16 132/80 02/23/23 18:38 98.5 F 92 16 129/81 02/23/23 16:49 98.1 F 80 16 132/73 02/23/23 13:20 98.1 F 85 16 151/88 02/23/23 12:03 81 81 79 02/23/23 10:11 97 F L 99 18 124/79 BP BP BP Pulse Ox 02/24/23 06:54 129/83 98 02/24/23 01:35 106/62 97 02/23/23 22:51 114/74 97 02/23/23 21:57 99 02/23/23 18:38 98 02/23/23 16:49 99 02/23/23 13:20 100 02/23/23 12:03 151/88 150/87 149/89 02/23/23 10:11 100 Intake and Output 02/23/23 02/24/23 02/24/23 22:59 06:59 14:59 Intake Total 700 Balance 700 Intake: Intake, IV Titration 700 Amount Potassium Chloride 10 meq 100 In Water For Injection 1 100ml.bag @ 100 mls/hr IVPB Q1H [facility] Rx#: [id number] Sodium Chloride 0.9% 1, 600 000 ml @ 75 mls/hr IV . [id number] [facility] Rx#:[id number] Other: # Voids 1 Weight 74.843 kg GENERAL: The patient is alert and oriented x3, not in any acute distress. Well developed, well nourished. HEENT: Pupils are round and equally reacting to light. EOMI. No scleral icterus. No conjunctival pallor. Normocephalic, atraumatic. No pharyngeal erythema. No thyromegaly. CARDIOVASCULAR: S1 and S2 present. No murmurs, rubs, or gallops. PULMONARY: Chest is clear to auscultation, no wheezing , no crackles. ABDOMEN: Soft, nontender, nondistended, normoactive bowel sounds. No palpable organomegaly. -MUSCULOSKELETAL: No joint swelling or deformity. right knee mildly swollen and tender EXTREMITIES: No cyanosis, clubbing, or pedal edema. NEUROLOGICAL: Gross neurological examination did not reveal any focal deficits. SKIN: No rashes. no petechiae. Results CBC & Chem 7: 02/23/23 10:49 02/24/23 06:35 Labs: Abnormal Lab Results - Last 24 Hours (Table) 02/23/23 02/23/23 Range/Units 10:49 10:49 WBC 11.1 H (3.8-10.6) k/uL Neutrophils # 9.6 H (1.3-7.7) k/uL Potassium 3.4 L (3.5-5.1) mmol/L Creatinine 0.44 L (0.52-1.04) mg/dL Glucose 132 H (74-99) mg/dL Thrombosis Risk Factor Assmnt - Choose All That Apply Any of the Below Risk Factors Present?: Yes Each Factor Represents 1 point: Age 41-60 years Other Risk Factors: No Other congenital or acquired thrombophilia - If yes, enter type in comment: No Thrombosis Risk Factor Assessment Total Risk Factor Score: 1 Thrombosis Risk Factor Assessment Level: Low Risk Assessment and Plan Assessment: severe dizziness as admission , associated with nausea and vomiting Fall without syncope right knee sprain and swelling hypertension Plan: patient on meclizine when necessary Continue with the neuro check Continue with IV hydration mri of brain Neurology consult orthopedic team consult pain management, patient agrees to start [place] 5 mg with risks benefits are explained to her in details including but not limiting to risk of respiratory depression, and/or or addiction Labs and medication were reviewed.. Continue same treatment. Continue with symptomatic treatment. Resume home medication. Monitor labs and vitals. DVT and GI prophylaxis. Further recommendations as per clinical course of the patient DVT prophylaxis: Subcutaneous heparin GI Prophylaxis: Pepcid PT/OT: Pending Prognosis is guarded
--- NOTE | 2023-02-24 12:08 | P.CNNES ---
History of Present Illness Consult date: 02/24/23 Requesting physician: Cuca Barahona Reason for Consult: dizziness, unresolved vertigo History of Present Illness: This is a 57-year-old woman with history of hypertension, positive orthostatic hypotension who presented emergency department because of a fall and dizziness. According to the patient that about 2 days ago she was organizing stuff in her house late at night and the she felt lightheaded upon standing up and her foot got stuck so she fell in her head. She states her dizziness happen mostly with movement and she had nausea and vomiting as a result. As a result she has pain in the right knee and she felt like she overstretched her knee twice that day. Denies of any focal weakness. Denies of any visual disturbance, has summary in the ears denies of any numbness difficulty swallowing. She feels her dizziness is improving. Denies any history of stroke or TIAs in the past. Some other workup during his hospital visit consisted of: Orthostatic vitals was negative. Supine and his blood pressure 149/89 with a heart rate of 79, sitting is 151/88 with a heart rate of 81, standing is 150/87 with a heart rate of 81. Calcium is 9.6. AST ALT is within normal limits CT of the head is reported as no acute intracranial processes. CT cervical spine is reported as no evidence of cervical spine fracture. Mild multilevel degenerative disc disease and facet arthropathy. Review of Systems The positive and negative as per HPI. Past Medical History Past Medical History: Hypertension Additional Past Medical History / Comment(s): high cholesterol,polycystic ovaries History of Any Multi-Drug Resistant Organisms: None Reported Past Surgical History: Orthopedic Surgery Additional Past Surgical History / Comment(s): R foot Past Anesthesia/Blood Transfusion Reactions: No Reported Reaction Past Psychological History: No Psychological Hx Reported Smoking Status: Never smoker Past Alcohol Use History: Occasional - Past Family History Father Family Medical History: COPD Additional Family Medical History / Comment(s): high platelet disorder- told hereditary Medications and Allergies Home Medications Medication Instructions Recorded Confirmed Type Atorvastatin Calcium [Lipitor] 20 mg PO DAILY@189902/19/18 02/23/23 History Losartan-Hctz 50-12.5 mg [Hyzaar 1 tab PO DAILY@189902/23/23 02/23/23 History 50-12.5] Allergies Allergy/AdvReac Type Severity Reaction Status Date / Time No Known Allergies Allergy Verified 02/23/23 15:48 Physical Examination - Vital Signs Vital Signs: Vital Signs Temp Pulse Pulse Pulse Pulse Resp BP 02/24/23 07:40 97 18 02/24/23 06:54 97.8 F 77 18 02/24/23 01:35 98 F 97 02/23/23 22:51 98.1 F 73 17 02/23/23 21:57 76 16 132/80 02/23/23 18:38 98.5 F 92 16 129/81 02/23/23 16:49 98.1 F 80 16 132/73 02/23/23 13:20 98.1 F 85 16 151/88 02/23/23 12:03 81 81 79 BP BP BP Pulse Ox 02/24/23 07:40 02/24/23 06:54 129/83 98 02/24/23 01:35 106/62 97 02/23/23 22:51 114/74 97 02/23/23 21:57 99 02/23/23 18:38 98 02/23/23 16:49 99 02/23/23 13:20 100 02/23/23 12:03 151/88 150/87 149/89 Intake and Output 02/23/23 02/24/23 02/24/23 22:59 06:59 14:59 Intake Total 700 Balance 700 Intake: Intake, IV Titration 700 Amount Potassium Chloride 10 meq 100 In Water For Injection 1 100ml.bag @ 100 mls/hr IVPB Q1H [facility] Rx#: [id number] Sodium Chloride 0.9% 1, 600 000 ml @ 75 mls/hr IV . [id number] L[facility]ENE Rx#:[id number] Other: # Voids 1 Weight 74.843 kg GENERAL: The patient is sitting on side of bed and is not in acute distress. NEUROLOGICAL: Higher mental function: The patient is awake, alert, oriented to self, place and time. Patient is following commands. No aphasia and no neglect. Cranial nerves: The pupils are round, equal and reactive to light and accommodation. Visual dumont are full to confrontation throughout. Extraocular movement is nystagmus looking to right and is rotatory. Facial sensation is normal to touch throughout. The facial strength is normal throughout. Hearing is normal bilaterally to hand rub. Tongue is midline and moved [id number] without any difficulty. No dysarthria is noted. Shoulder shrug is normal bilaterally. Motor: The strength is 5 over 5 throughout upper and left lower. Right lower is deferred since has edema around the right knee and is somewhat painfu.. Normal tone and bulk. Cerebellum: Normal finger to nose bilaterally. Sensation: Sensation is normal to touch throughout. Reflexes (right/left): Right lower is deferred. But otherwise 2+ throughout. Plantars are mute bilaterally. Results - Laboratory Findings CBC and BMP: 02/23/23 10:49 02/24/23 06:35 Abnormal Lab Findings: Abnormal Labs 02/23/23 02/23/23 02/24/23 10:49 10:49 06:35 WBC 11.1 H Neutrophils # 9.6 H Potassium 3.4 L Carbon Dioxide 34.5 H Anion Gap 1.50 L BUN 6.4 L Creatinine 0.44 L BUN/Creatinine Ratio 10.67 L Glucose 132 H Calcium 8.5 L Assessment and Plan Assessment: This is a 57-year-old woman who 2 days ago she was working around the house late at night and then she felt lightheaded and dizzy upon standing up and her right foot got stock she fell but did not pass out. She has been having some nausea and vomiting and some ringing of the ears. She overstretched her right knee twice as a result has edema around the right knee. Acute vertigo. Probable peripheral vertigo. Rule out stroke. On examination has nystagmus looking to right. No focal deficit and vertigo is improving. Orthostatic vitals is negative History of hypertension Plan: I ordered MRI of the brain with and without as well as MRA of the head and neck I consulted PT and OT Patient is on meclizine 25 mg 1 tablet 3 times a day when necessary and I change it to scheduled 4 times a day We'll defer the rest of the medical management to primary team The plan discussed with the patient Thank you for the consultation Dr. Loredo will start neurology service tomorrow a.m. Time with Patient: Greater than 30
[2023-02-24] MEDS ORDERED: HYDROcodone/APAP 5-325MG 1 EACH TAB PO STA (12:24)
[2023-02-24] MEDS ORDERED: HYDROcodone/APAP 5-325MG 1 EACH TAB PO PRN (12:24)
[2023-02-24] MEDS ORDERED: BUTALB/APAP/CAFF 50-325-40MG TAB PO PRN (12:24)
[2023-02-24] MEDS: MECLIZINE 25 MG TAB PO SCH ×3 (12:53→22:31)
--- NOTE | 2023-02-24 14:42 | P.CNOR ---
History of Present Illness - [facility] Consult date: 02/24/23 Consult reason: joint pain (Right knee pain and swelling) History of present illness: Patient is a 57-year-old female who presented to [facility] on 02/23/2023 for evaluation of severe dizziness, nausea and vomiting. Apparently the patient was doing some organizing in her house when she developed a significant dizziness, she ended up twisting her right knee and falling at that time. Patient admits to a second fall that also occurred around the same time period. Patient was admitted to the hospital for further evaluation and workup, both internal medicine and neurology her following the patient. Our orthopedic team was consulted due to continuous pain involving the right knee and swelling. Patient was evaluated today at bedside, she is resting comfortably, she notes significant swelling and discomfort on the right knee. She has been icing and elevating since being in the hospital. She admits to pain being more on the posterior aspect of the knee and over the anterior aspect of the when trying to bend it. She has been weightbearing with a walker, she's been more of a toe-to uch weightbearing. Patient denies any previous surgery to the right lower extremity. It was noted she was having some hip pain which has continued to use up since being in the hospital. She was also commenting on some right shoulder pain that has been bothering her for quite some time, she states that she was doing some heavy lifting over the last month or so, she feels that the fall may have exacerbated the symptoms. Review of Systems Constitutional: Reports as per [facility] Past Medical History Past Medical History: Hypertension Additional Past Medical History / Comment(s): high cholesterol,polycystic ovaries History of Any Multi-Drug Resistant Organisms: None Reported Past Surgical History: Orthopedic Surgery Additional Past Surgical History / Comment(s): R foot Past Anesthesia/Blood Transfusion Reactions: No Reported Reaction Past Psychological History: No Psychological Hx Reported Smoking Status: Never smoker Past Alcohol Use History: Occasional - Past Family History Father Family Medical History: COPD Additional Family Medical History / Comment(s): high platelet disorder- told hereditary Medications and Allergies Home Medications Medication Instructions Recorded Confirmed Type Atorvastatin Calcium [Lipitor] 20 mg PO DAILY@189902/19/18 02/23/23 History Losartan-Hctz 50-12.5 mg [Hyzaar 1 tab PO DAILY@189902/23/23 02/23/23 History 50-12.5] Allergies Allergy/AdvReac Type Severity Reaction Status Date / Time No Known Allergies Allergy Verified 02/23/23 15:48 Physical Examination Right lower extremity: Obvious effusion present over the knee, there are no areas of erythema or open lesion Pain with palpation is appreciated to the anterior aspect of the knee, there is also some tenderness in the posterior aspect of the knee. She demonstrates no acute medial or lateral joint line tenderness. Patient remains nontender with palpation of the proximal thigh, lower leg, foot and ankle Range of motion was difficult to assess due to the amount of swelling, she was able to flex to about 70 before pain is reproduced, she lacked about 3 of extension due to discomfort. Plantar flexion, dorsiflexion, EHL, FHL are intact. Logroll maneuver reproduces no pain in the groin Negative straight leg raise Knee was stable to both varus and valgus force. No laxity was noted on anterior/ posterior drawer, these tests were little bit difficult due to the amount of swelling and guarding on exam Calf is soft, no tenderness with palpation. The anterior and posterior compartments of both the upper leg and lower leg are soft and compressible Sensory exam to light touch is intact throughout the extremity Dorsal pedis pulses 2+ Results - Labs Labs: Abnormal Lab Results - Last 24 Hours (Table) 02/24/23 Range/Units 06:35 Carbon Dioxide 34.5 H (21.6-31.8) mmol/L Anion Gap 1.50 L (4.00-12.00) mmol/L BUN 6.4 L (9.0-27.0) mg/dL BUN/Creatinine Ratio 10.67 L (12.00-20.00) Ratio Calcium 8.5 L (8.7-10.3) mg/dL H & H 02/23/23 Range/Units 10:49 Hgb 12.6 (11.4-16.0) gm/dL Hct 37.5 (34.0-46.0) % Result Diagrams: 02/23/23 10:49 02/24/23 06:35 - Diagnostic results Hip x-ray: report reviewed, image reviewed (Images and reports were reviewed of the right hip. No acute fractures or dislocations appreciated. Joint space narrowing and sclerotic changes noted to the acetabulum) Knee x-ray: report reviewed (Report and images were reviewed of the right knee. No acute fractures or dislocations are present. Medial joint space narrowing and osteophyte formation present. Bipart patella noted. Spurring was noted on the superior and inferior pole of patella), image reviewed Assessment and Plan Assessment: Right knee pain/effusion Right knee osteoarthritis Right knee bipartite patella Right hip osteoarthritis Status post fall from standing Other medical comorbidities Plan: I was able to discuss the case, this including both physical exam findings and imaging studies my attending Dr. Douglas Discussed treatment options today with patient at bedside, offered her an aspiration with cortisone injection. Risk and benefits of the procedure were discussed with the patient, she was a good understanding and wanted to proceed. Consent was obtained prior to procedure. Please see procedure note for further detail Findings an aspiration did note some bloody serosanguineous fluid. Patient's exam after the aspiration seemed to improve, especially with range of motion and weightbearing status. We'll hold off on any further imaging studies at this time. Discussed with patient that this is hopefully just a exacerbation of her osteoarthritis from the fall, we did discuss other pathologies that we we can further discuss after recheck in office in the next 1-2 weeks. Recommending icing and elevating along with feasible Tylenol and NSAIDs as needed Weight-bear as tolerated, advised patient to avoid significant flexion and excess force on the knee over the next 1-2 weeks. Follow-up information for Dr. Douglas was placed in chart Please contact our orthopedic service with any further questions regarding this patient Time with Patient: Less than 30
--- NOTE | 2023-02-24 14:44 | P.PCN ---
Date of Procedure: 02/24/23 Preoperative Diagnosis: Right knee effusion Postoperative Diagnosis: Same Procedure(s) Performed: Right knee aspiration with intra-articular cortisone injection Anesthesia: local Surgeon: Cosme Quick Pathology: none sent Condition: stable Disposition: no change Indications for Procedure: Right knee effusion and pain Description of Procedure: Risk and benefits were discussed with the patient prior to injection, this including infection, and adequate resolution of symptoms, need for further treatment. Patient was in good understanding want to proceed, written consent was obtained prior Patient was in the supine position, the knee was prepped with 1 iodine swab and through alcohol swabs. A 20-gauge needle was used to first inject 3 mL of 1% plain lidocaine via the suprapatellar approach. I was able to aspirate about 30 mL of bloody serosanguineous joint fluid. I then changed syringes, I then placed 1 mL of 1% plain lidocaine, 1 mL of quarter percent plain Marcaine and 40 mg of Depo-Medrol via suprapatellar approach. A bandage was in place. Patient tolerated the procedure well, her range of motion was significantly improved after the injection. Patient was also able to weight-bear on the knee after the injection and noted improvement.
[2023-02-24] MEDS: LOSARTAN-HCTZ 50-12.5 MG 1 EACH TAB PO SCH (20:42)
[2023-02-24] MEDS: ATORVASTATIN 20 MG TAB PO SCH (20:42)
[2023-02-24] MEDS: SODIUM CHLORIDE 0.9% 1,000 ML IV SCH (22:31)
[2023-02-25] MEDS: SODIUM CHLORIDE 0.9% 1,000 ML IV SCH ×2 (04:10→17:44)
[2023-02-25] MEDS: HEPARIN SODIUM,PORCINE 5,000 UNIT/ML 1 ML VIAL SQ SCH (08:00)
[2023-02-25] MEDS: FAMOTIDINE 20 MG/2 ML VIAL IV SCH (08:00)
[2023-02-25] MEDS: MECLIZINE 25 MG TAB PO SCH ×3 (08:00→19:49)
[2023-02-25 08:22] VITALS: BP 126/81; PULSE 58; RESP 17; TEMP 97.4
[2023-02-25 10:10] LABS: HCT 33.3 % (37.2-46.3); HGB 10.6 d/dL (12.0-15.0); MCHC 31.8 d/dL (32.0-37.0); Mean Platelet Volume 10.7 FL (9.5-12.2); NRBC Per 100 WBC 0 X 10*3/uL (0.00-0.01); Platelet Count 240 X 10*3/uL (140-440); RBC 3.66 X 10*6/uL (4.10-5.20); RDW 14.6 % (11.5-14.5); WBC 8.21 X 10*3/uL (4.50-10.00)
--- NOTE | 2023-02-25 12:50 | P.PN ---
Subjective This is a pleasant 57 years old female with past medical history of hypertension patient states that her symptoms started Monday evening when she was trying to stand up quickly and she felt dizzy at the same time her foot gets stuck in the furniture and her right knee got twisted and an start seeing burst applied to the front of her eyesassociated with vomiting until 4:00 in the morning. Patient states that she cannot do weightbearing on her right knee because it hurts. Patient presents because she fell last night pt states she still feels dizziness which she describes it as nonspecific dizziness other than the room spinning or presyncope. relatedher dizziness got worse with or extreme head movement. She has some headache about 6-7/10 in the morning that's partially improved with Tylenol, She denies weakness numbness or tingling. No slurred speech. She still feels nausea, she tolerated this morning. She denies any diarrhea. No urinary complaints. No chest pain or dyspnea. no smoking, no illicit drugs. She drinks alcohol occasionally patient wants to go home soon for example after MRI which is pending now Vital signs stable and patient is afebrile Labs showed mild leukocytosis of 11.1, rest of CBC, BMP, liver enzymes not elevated. Urine analysis is negative for infection CT of the head and neck: No acute process X-ray of the right hip, right humerus, right knee: No acute process. Neck: No acute process EKG showing normal sinus rhythm at [address]-T changes 02/25/2023 Patient dizziness is minimal, patient was started on meclizine by neurologist as tolerated. She has no headache and her nausea vomiting also resolved. She has no ear problem today, she was told when she went to urgent care last week she has some fluid in her ear. Patient was instructed to follow up with ENT for example Dr. Burk as an outpatient in 7-10 days but patient is hesitant. MRI of the head and neck is ordered and pending Leukocytosis improved secondary to reactive effect and hemodilution effect She is status post aspiration of her knee. The patient was seen walking the hallway with a walker. Possible discharge in 24-48 hours. Patient is eager to go home once her MRI done Objective - Vital Signs Vital signs: Vital Signs Temp 97.4 F L 02/25/23 07:08 Pulse 58 L 02/25/23 07:08 Resp 17 02/25/23 07:08 BP 126/81 02/25/23 07:08 Pulse Ox 97 02/25/23 07:08 FiO2 Intake & Output 02/24/23 02/25/23 02/25/23 18:59 06:59 18:59 Other: # Voids 4 3 - Exam GENERAL: The patient is alert and oriented x3, not in any acute distress. Well developed, well nourished. HEENT: Pupils are round and equally reacting to light. EOMI. No scleral icterus. No conjunctival pallor. Normocephalic, atraumatic. No pharyngeal erythema. No thyromegaly. CARDIOVASCULAR: S1 and S2 present. No murmurs, rubs, or gallops. PULMONARY: Chest is clear to auscultation, no wheezing , no crackles. ABDOMEN: Soft, nontender, nondistended, normoactive bowel sounds. No palpable organomegaly. MUSCULOSKELETAL: No joint swelling or deformity. EXTREMITIES: No cyanosis, clubbing, or pedal edema. NEUROLOGICAL: Gross neurological examination did not reveal any focal deficits. SKIN: No rashes. no petechiae. - Labs CBC & Chem 7: 02/25/23 05:26 02/24/23 06:35 Labs: Abnormal Lab Results - Last 24 Hours (Table) 02/25/23 Range/Units 05:26 RBC 3.66 L (4.10-5.20) X 10*6/uL Hgb 10.6 L (12.0-15.0) d/dL Hct 33.3 L (37.2-46.3) % MCHC 31.8 L (32.0-37.0) d/dL RDW 14.6 H (11.5-14.5) % Assessment and Plan Assessment: severe dizziness as admission , associated with nausea and vomiting Fall without syncope right knee sprain and swelling hypertension Plan: patient on meclizine Continue with IV hydration mri of brain Neurology consult orthopedic team consult pain management follow-up with ENT as an outpatient Labs and medication were reviewed.. Continue same treatment. Continue with s ymptomatic treatment. Resume home medication. Monitor labs and vitals. DVT and GI prophylaxis. Further recommendations as per clinical course of the patient DVT prophylaxis: Subcutaneous heparin GI Prophylaxis: Pepcid PT/OT: Pending Prognosis is guarded
[2023-02-25] MEDS ORDERED: ASPIRIN 81 MG PO STA ×2 (13:57→14:14)
--- NOTE | 2023-02-25 14:20 | P.PN ---
Subjective Progress Note Date: 02/25/23 Patient was initially seen by Dr. Peng Doe. Please refer to his note for details. Patient was seen for a follow-up. Patient is a 57-year-old female, who while organizing stuff in her house late at night at 10 PM on , 02/23/2023, she felt lightheaded upon standing up and her foot got stuck so she fell and hit her head on the side of the wall. She also hurt her right knee at that time. She then stood up and tried to walk. She suddenly started having visual disturbance, consisting of seeing like "fireworks", had a vision flipped upside down on the left side of her vision and she was seeing Starburst in her vision. At the same time, she twisted and fell on the side of the bed, down to the floor. She sat up on the floor with her back leaned against the bed and she started vomiting, spinning and laid down on the floor for about 4 hours with constant nausea vomiting. She got onto the toilet, vomited. She then went to bed and woke up at 10 AM and was sweating with nausea and dry heaving, therefore she came to the ER. While in the ER, patient had some paresthesias, in which she felt as if she had handcuffs in her wrists although there was none. Even the wristband was only in the left wrist but she felt it on both sides. She also felt that she had a tight tubing of nasal cannula around her nose, although it was not present. She also felt that she was wearing her sunglasses, which she usually rolls it up on the head although she was not wearing the glasses. These paresthesias in the hands lasted for about half an hour, but the facial region lasted for about an hour. She denies any slurred speech, facial droop, or loss of vision. Patient does have hypertension, hyperlipidemia, does not take any antiplatelet medications. For last 1 year, she has been having some orthostatic type of symptoms, when she suddenly sits up, or gets up, she feels dizzy, but only pernell etimes. Never had any symptoms persisted like it. Some other workup during his hospital visit consisted of: Orthostatic vitals was negative. Supine and his blood pressure 149/89 with a heart rate of 79, sitting is 151/88 with a heart rate of 81, standing is 150/87 with a heart rate of 81. Calcium is 9.6. AST ALT is within normal limits CT of the head is reported as no acute intracranial processes. CT cervical spine is reported as no evidence of cervical spine fracture. Mild multilevel degenerative disc disease and facet arthropathy. Objective - Vital Signs Vital signs: Vital Signs Temp 97.4 F L 02/25/23 07:08 Pulse 58 L 02/25/23 07:08 Resp 17 02/25/23 07:08 BP 126/81 02/25/23 07:08 Pulse Ox 97 02/25/23 07:08 FiO2 Intake & Output 02/24/23 02/25/23 02/25/23 18:59 06:59 18:59 Other: # Voids 4 3 - Exam Patient is a middle aged female, in no acute distress. Patient is alert awake oriented to time place and person. Speech and language functions are normal. Patient can name and repeat very well. No aphasia or dysarthria. Attention, concentration and fund of knowledge is adequate. On cranial nerve examination, pupils are equal, round and reacting to light, visual dumont are full on confrontation, with no neglect on double simultaneous stimulation. Extraocular muscles are intact with no nystagmus. Face is symmetric, tongue protrudes to the midline. Palatal elevation and sensation normal, hearing and shoulder shrug normal, facial sensation normal. On muscle strength testing, there is no pronator drift and the strength is normal in arms and legs distally and proximally. Sensory to touch is equal with no neglect on double simultaneous stimulation. Cerebellar function showed no ataxia for [id number] testing. Tone and bulk of muscles normal. Gait deferred.. On general examination, there is no carotid bruit or murmur, S1-S2 audible. Chest is clear on consultation. Abdomen is soft nontender. No organomegaly, bowel sounds present. Peripheral pulses are present. No peripheral edema. - Labs CBC & Chem 7: 02/25/23 05:26 02/24/23 06:35 Labs: Abnormal Lab Results - Last 24 Hours (Table) 02/25/23 Range/Units 05:26 RBC 3.66 L (4.10-5.20) X 10*6/uL Hgb 10.6 L (12.0-15.0) d/dL Hct 33.3 L (37.2-46.3) % MCHC 31.8 L (32.0-37.0) d/dL RDW 14.6 H (11.5-14.5) % Assessment and Plan Assessment: Acute episode of vertigo, nausea, vomiting lasting for at least 4 hours followed by some facial and hand paresthesias that lasted for about 1 hour. Patient also had transient visual disturbance as well. This happened after patient felt dizzy, and fell. Rule out TIA. Her current neurological examination is normal. NIH stroke scale is 0. Right knee injury due to fall. Acute vertigo. Rule out stroke. On examination has nystagmus looking to right. No focal deficit and vertigo is improving. Orthostatic vitals is negative Hypertension Hyperlipidemia Plan: MRI of the brain, with MRA of head and neck cannot be performed until Monday. Patient states she absolutely cannot stay any longer and she wants to go home. Instead of MRA, we will check CTA of head and neck rule out carotid or vertebral arterial dissection or stenosis. 2-D echo to rule out embolic source. Patient was given aspirin 324 mg stat at this time. Patient will be continued on aspirin 81 mg daily indefinitely. Patient will continue Lipitor 20 mg daily. Optimize control of blood pressure. Patient is on meclizine 25 mg 1 tablet 3 times a day as needed. Hopefully patient will be able to go home later this evening. Addendum: CTA of head and neck revealed no flow limiting stenosis bilateral carotid bifurcations. Normal [place] of Wong. 2-D echo revealed left-ventricular ejection fraction 60-65%. Trace MR. Trace AR. Moderately dilated proximal ascending aorta. Patient may follow-up with announcer outpatient. Neurologically clear for discharge with the above recommendation.
--- NOTE | 2023-02-25 17:00 | CT ---
EXAMINATION TYPE: CT angio head neck DATE OF EXAM: 02/25/2023 HISTORY: Dizziness with vomiting. COMPARISON: CT DLP: 1648.2 mGycm. Automated Exposure Control for Dose Reduction was Utilized. TECHNIQUE: CTA scan of the neck is performed with IV Contrast, patient injected with 65 cc with 50 c c saline mL of Isovue 370, axial images are obtained, coronal and sagittal reformatted images are rev iewed. Three-D reconstructed images are created on an independent workstation and reviewed. Source i mages are reviewed. FINDINGS: Carotid/Vascular Structures: There is a 3 vessel arch. Common carotid arteries bifurcate into internal and external carotid arteries without significant christina w limiting stenosis. Vertebral arteries are codominant. Internal carotid arteries and vertebral arteries are patent to the skull base. Cervical of Wong: Vertebral basilar system appears normal. Posterior cerebral vasculature is unrema rkable. Internal carotid arteries bifurcate normally into A1 and M1 segments. A2 segments are normal. The anterior communicating artery is patent. Posterior communicating arteries not identified. IMPRESSION: 1. No flow-limiting stenosis bilateral carotid bifurcations. 2. Normal [place] of [place] NASCET criteria was used in interpretation of this exam?
--- NOTE | 2023-02-25 17:44 | CA ---
Transthoracic Echo Report Name: Claire Rebolledo Age: 57 Gender: F : 1965 Exam Date: 02/25/2023 14:59 Exam Location: [facility] Ht (in): 68 Wt (lb): 165 Ordering Physician: Constantino Loredo MD Attending/Referring Phys: Gerontology Aide Evy Rick [facility] Procedure CPT: Indications: Vertigo, r/o TIA Cardiac Hx: Technical Quality: Fair Contrast 1: Total Dose (mL): Contrast 2: Total Dose (mL): MEASUREMENTS (Male / Female) Normal Values 2D ECHO LV Diastolic Diameter PLAX 4.9 cm 4.2 - 5.9 / 3.9 - 5.3 cm LV Systolic Diameter PLAX 3.3 cm IVS Diastolic Thickness 0.8 cm 0.6 - 1.0 / 0.6 - 0.9 cm LVPW Diastolic Thickness 0.8 cm 0.6 - 1.0 / 0.6 - 0.9 cm LV Relative Wall Thickness 0.3 LVOT Diameter 2.0 cm Ascending Aorta Diameter 4.4 cm M-MODE Aortic Root Diameter MM 2.6 cm LA Systolic Diameter MM 3.6 cm LA Ao Ratio MM 1.4 AV Cusp Separation MM 1.8 cm DOPPLER AV Peak Velocity 165.4 cm/s AV Peak Gradient 10.9 mmHg AV Mean Velocity 117.5 cm/s AV Mean Gradient 6.0 mmHg AV Velocity Time Integral 34.7 cm LVOT Peak Velocity 148.1 cm/s LVOT Peak Gradient 8.8 mmHg LVOT Velocity Time Integral 29.4 cm LVOT Stroke Volume 92.4 cm??? LVOT Stroke Volume Index 49.1 ml/m??? LVOT Cardiac Index 3689.2 cm???/min???m??? AV Area Cont Eq vti 2.7 cm??? AV Area Cont Eq pk 2.8 cm??? Mitral E Point Velocity 76.7 cm/s Mitral A Point Velocity 85.3 cm/s Mitral E to A Ratio 0.9 MV Deceleration Time 207.9 ms LV E' Lateral Velocity 10.7 cm/s Mitral E to LV E' Lateral Ratio 7.2 LV E' Septal Velocity 8.2 cm/s Mitral E to LV E' Septal Ratio 9.3 TR Peak Velocity 235.2 cm/s TR Peak Gradient 22.1 mmHg Right Atrial Pressure 8.0 mmHg Pulmonary Artery Systolic Pressu 30.1 mmHg Right Ventricular Systolic Press 30.1 mmHg FINDINGS Left Ventricle Left ventricular wall thickness normal. Left ventricular cavity size normal. Normal left ventricular systolic function with no obvious regional wall motion abnormalities. Left ventricular ejection fraction is estimated at 60-65%. Right Ventricle Mild right ventricular dilatation. Right Atrium Upper normal right atrial size. Left Atrium Normal left atrial size. Mitral Valve Mitral valve thickened. Trace mitral regurgitation. Aortic Valve Trileaflet aortic valve. Trace aortic regurgitation. Tricuspid Valve Structurally normal tricuspid valve. Trace tricuspid regurgitation. Pulmonic Valve Pulmonic valve not well visualized. Pericardium Minimal pericardial effusion (normal variant). Aorta Normal size aortic root and moderately dilated proximal ascending aorta. CONCLUSIONS Left ventricular ejection fraction 60-65% RVSP 30 Trace mitral regurgitation Trace aortic regurgitation Trace tricuspid regurgitation Previewed by: Dr. Bal Chavira DO (Electronically Signed) Final Date: 25 February 2023 17:43
[2023-02-25] MEDS: ATORVASTATIN 20 MG TAB PO SCH (18:50)
[2023-02-25] MEDS: LOSARTAN-HCTZ 50-12.5 MG 1 EACH TAB PO SCH (18:50)
--- NOTE | 2023-02-25 21:06 | P.DS ---
Providers Date of admission: 02/23/23 17:03 Attending physician: Erlinda Nichole Consults: 02/23/23 16:33 Consult Physician Urgent Consulting Provider: Tj Doe Consult Reason/Comments: dizziness, unresolved vertigo Do you want consulting provider notified?: Yes, Notify in am 02/24/23 12:25 Consult Physician Routine Consulting Provider: Nabeel Douglas Consult Reason/Comments: right knee pain and swelling Do you want consulting provider notified?: Yes Primary care physician: [facility] Course: addendum: (please refer to the progress note from today for more details) after rounding on the pt in the morning, i got a page from the bed side nurse more than once that pt is eager to go home and been discharged today, ordered MRI of the brain could not be done till monday , pt was still eager to go home today ( she told that since yesterday and today morning ) as such dr. 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 on one to two weeks and she agrees with that pt was started on asprin 81 mg and risks of aspirin are explained to her extensively, also she is informed her hb today was 10.6 down from 12.6, however this looks more as of hemodilution, pt denies any signs or symtoms of bleeding or black stool, beside her other symptoms she came up with has resovled completely (dizziness, KUMAR, Nausea/vomiting, no ear problem)i offered for the pt to keep her one more day to mointor her Hb , she refused and she still adamant to be discharged today , we instruced pt to monitor her hemoglobin with her pcp in 2-3 days , she said she will call and make appointment with dr. bernard. i called the neurologist dr. olson and we discussed the reviewed the case tog ether, has cleared the pt for discharge , she will be discharge on asipirin 51 mg and lipitor Problems and management plan were discussed with the patient and she verbalized understanding and acceptance Patient was found stable and can be discharged home in guarded prognosis however he needs follow-up as an outpatient. Patient was instructed to follow up with PCP Dr. bernard within one week and patient agrees Patient also was instructed to follow up with his neurologist Dr. hcavez in 1-2 weeks and she agrees to call and make his own appointment ( she wanted to talk to her doctor to find which neurologist to follow up with ) , pt was instructed to follow up with school clerk in two weeks , and with orthopedic in two weeks and she agrees , and with ENT in 7-10 days and she agrees Patient Condition at Discharge: Fair Plan - Discharge Summary Discharge Rx Participant: No New Discharge Prescriptions: New Meclizine [Antivert] 25 mg PO QID PRN 10 Days #40 tab PRN Reason: Vertigo Aspirin 81 mg PO DAILY #30 tab Famotidine [Pepcid] 20 mg PO BID 15 Days #30 tablet Continue Atorvastatin Calcium [Lipitor] 20 mg PO DAILY@190 Losartan-Hctz 50-12.5 mg [Hyzaar 50-12.5] 1 tab PO DAILY@1900 Discharge Medication List Atorvastatin Calcium [Lipitor] 20 mg PO DAILY@1900 02/19/18 [History] Losartan-Hctz 50-12.5 mg [Hyzaar 50-12.5] 1 tab PO DAILY@1900 02/23/23 [History] Aspirin 81 mg PO DAILY #30 tab 02/25/23 [Rx] Famotidine [Pepcid] 20 mg PO BID 15 Days #30 tablet 02/25/23 [Rx] Meclizine [Antivert] 25 mg PO QID PRN 10 Days #40 tab 02/25/23 [Rx] Follow up Appointment(s)/Referral(s): Sadia Hernandez MD [STAFF PHYSICIAN] - 2 Weeks (heart doctor for your abnormal echocardiogram (Moderately dilated proximal ascending aorta)) Edvin Burk DO [Doctor of Osteopathic Medicine] - 10 Days (ENT physician ) Nabeel Douglas DO [Doctor of Osteopathic Medicine] - 2 Weeks Scarlet Middleton MD [Primary Care Provider] - 1-2 days Ambulatory/Diagnostic Orders: Complete Blood Count w/diff [LAB.AMB] Time Frame: 3 Days, Location: None Selected Activity/Diet/Wound Care/Special Instructions: Orthopedic discharge instructions: 1. Weight-bear as tolerated, avoid rotation and flexion of the knee 2. Ice and elevate the knee often 3. Use of Tylenol or NSAIDs to help with discomfort 4. Plan for [facility] at [facility] 2 weeks for recheck heart healthy diet activity is restricted till you see your doctor we recommend to monitor your hemoglobin level with your doctor , please follow up with your primary care doctor in 2-3 days please monitor for any signs or symptoms of bleeding , eg blood in stool , black stool , bleeding via genital organs Discharge Disposition: HOME SELF-CARE
[2023-02-26] MEDS ORDERED: ASPIRIN 81 MG PO SCH (09:00)
== END 2023-02-25 19:08 | disposition home or self-care (01) ==
LOC: EC 10:08 → 6NMEDSUR 17:03 → 4SSUR 21:14
PROVIDERS: ADMIT Hospitalist; ATTEND Hospitalist
DX: R42 Dizziness and giddiness (principal); R11.2 Nausea with vomiting, unspecified; S00.01XA Abrasion of scalp, initial encounter; S83.91XA Sprain of unspecified site of right knee, initial encounter; M25.461 Effusion, right knee; W18.39XA Other fall on same level, initial encounter; M17.11 Unilateral primary osteoarthritis, right knee; Q74.1 Congenital malformation of knee; M16.11 Unilateral primary osteoarthritis, right hip; H55.00 Unspecified nystagmus; I10 Essential (primary) hypertension; E78.00 Pure hypercholesterolemia, unspecified; H53.9 Unspecified visual disturbance; Z79.899 Other long term (current) drug therapy
CPT/HCPCS: 96366; 96372; 96375 ×2; 96361; 96365; 99285; 36415; 93005; 93306; 97161; 97165; 80053; 80048; 83735; 84484; 85025; 85027; 81003; 71101; 73502; 73060; 73562; 72125; 70496; 70450; 70498; 20610; G0378 ×4; J1644; J3360; J2405; J3490; J3480; Q9967

== ENCOUNTER → 2023-03-22 | Outpatient (CLI) | payer OTHER ==
--- NOTE | 2023-03-24 10:44 | CT ---
EXAMINATION TYPE: CT angio chest CT DLP: 489.1 mGycm, Automated exposure control for dose reduction was used. DATE OF EXAM: 03/22/2023 4:36 PM COMPARISON: CT 02/17/2023. CLINICAL INDICATION:Female, 57 years old with history of I71.20 THORACIC AORTIC ANEURYSM; States that during her stay last month, aortic aneurysm was found on ascending aorta TECHNIQUE/CONTRAST: CTA scan of the thorax is performed without and with IV Contrast, patient injected with 100 cc mL of Isovue 370, MIP images are created and reviewed these are created on a separate workstation.. FINDINGS: Lungs/Pleura: No evidence of focal consolidation, pleural effusion or pneumothorax. Mild emphysema ch anges in the lung apices. Left major fissure intrafissural lymph node series 7 image 18. Airway: Large airways are patent. Heart: Heart is within normal limits for size. Vasculature: No evidence for intramural hematoma on noncontrast imaging. No evidence of intimal flap to suggest dissection. Ascending thoracic aorta ectasia up to 4.5 cm. Scattered atherosclerotic disea se. Mediastinum: No gross evidence of adenopathy. Musculoskeletal: Mild degenerative disc disease changes are present throughout the thoracolumbar spin e. Soft Tissues: Unremarkable. Lower neck: No significant findings. Upper Abdomen: Layering gallstones in the gallbladder lumen. IMPRESSION: Ascending thoracic aorta ectasia up to 4.5 cm.
== END | disposition home or self-care (01) ==
LOC: RADCTMAIN 15:59
PROVIDERS: ATTEND Internal Medicine Interventional Cardiology
DX: I77.810 Thoracic aortic ectasia (principal)
CPT/HCPCS: 71275; Q9967